=== PATIENT | male | born 1945 | race Caucasian/White ===

== ENCOUNTER 2017-03-08 18:56 | Inpatient (IN) | payer MEDICARE ==
[~2017-03-08] VITALS: Ht 167.6 cm; Wt 91.7 kg
[~2017-03-08 18:56] MED LIST: COZAAR100 MG PO; CRESTOR10 MG PO; ELIQUIS 2.5 MG2.5 MG PO; ELIQUIS5 MG PO; FLOMAX 0.4 MG0.4 MG PO; HUMALOG100 UNIT/1 SC; JANUVIA50 MG PO; KLONOPIN TAB 00.5 MG PO; LASIX20 MG PO; LOPRESSOR 25 MG25 MG PO; METFORMIN HCL1000 M1 PO; MIRAPEX0.125 MG PO; MULTAQ 400 MG400 MG PO; NEURONTIN 400400 MG PO; NITROGLYCERIN6.5 MG PO; PLAVIX 75 MG TA75 MG PO; PROTONIX40 MG PO; SYMBICORT 160-1 INHA INH; TYLENOL W/CODEIN1 E1 PO; ZANTAC150 MG PO; ZONEGRAN100 MG PO; ZONISAMIDE100 MG PO; ZYLOPRIM 100 M100 MG PO; ZYLOPRIM 300 M300 MG PO; [UNRECOGNIZED DRUG - OTHER] INJ
[2017-03-08 19:55] LABS: HEMOGLOBIN 8.9 gm/dl (14.0-17.5); RED BLOOD COUNT 3.9 M/UL (4.20-5.50); WHITE BLOOD COUNT 7.1 K/UL (4.5-11.0)
[2017-03-08] MEDS ORDERED: NATURAL LAXATIV25 MG PO (22:38)
[2017-03-08] MEDS ORDERED: FLOMAX 0.4 MG0.4 MG PO (22:38)
[2017-03-08] MEDS ORDERED: NORVASC 5 MG TAB5 MG PO (22:38)
[2017-03-08] MEDS ORDERED: TOUJEO SQ (22:40)
[2017-03-08] MEDS ORDERED: TYLENOL W/CODEIN1 E1 PO (22:41)
[2017-03-08] MEDS ORDERED: TYLENOL 325MG325 MG PO (22:41)
[2017-03-10 06:18] LABS: HEMOGLOBIN 8.3 gm/dl (14.0-17.5); RED BLOOD COUNT 3.64 M/UL (4.20-5.50); WHITE BLOOD COUNT 6.3 K/UL (4.5-11.0)
[2017-03-11 05:33] LABS: RED BLOOD COUNT 3.51 M/UL (4.20-5.50)
== END 2017-03-11 13:49 | disposition home or self-care (01) | DRG 682 ==
LOC: ER1 18:56 → ZEROF 21:41 → MED SURG 4 21:41
PROVIDERS: Emergency Medicine; Family Medicine; ADMIT Family Medicine
DX: N17.9 Acute kidney failure, unspecified (principal); I50.23 Acute on chronic systolic (congestive) heart failure; I13.0 Hypertensive heart and chronic kidney disease with heart failure and stage 1 through stage 4 chronic kidney disease, or unspecified chronic kidney disease; Q61.01 Congenital single renal cyst; K92.1 Melena; E11.22 Type 2 diabetes mellitus with diabetic chronic kidney disease; E11.21 Type 2 diabetes mellitus with diabetic nephropathy; E11.65 Type 2 diabetes mellitus with hyperglycemia; N18.3 Chronic kidney disease, stage 3 (moderate); I25.10 Atherosclerotic heart disease of native coronary artery without angina pectoris; E11.40 Type 2 diabetes mellitus with diabetic neuropathy, unspecified; I48.0 Paroxysmal atrial fibrillation; I70.203 Unspecified atherosclerosis of native arteries of extremities, bilateral legs; E78.5 Hyperlipidemia, unspecified; J44.9 Chronic obstructive pulmonary disease, unspecified; I35.0 Nonrheumatic aortic (valve) stenosis; D63.1 Anemia in chronic kidney disease; D50.9 Iron deficiency anemia, unspecified; R07.9 Chest pain, unspecified; R74.8 Abnormal levels of other serum enzymes; I65.21 Occlusion and stenosis of right carotid artery; M10.9 Gout, unspecified; E66.9 Obesity, unspecified; Z72.0 Tobacco use; F41.9 Anxiety disorder, unspecified; Z72.3 Lack of physical exercise; Z95.1 Presence of aortocoronary bypass graft; Z95.820 Peripheral vascular angioplasty status with implants and grafts; Z68.32 Body mass index [BMI] 32.0-32.9, adult; Z79.01 Long term (current) use of anticoagulants; Z79.84 Long term (current) use of oral hypoglycemic drugs; Z79.1 Long term (current) use of non-steroidal anti-inflammatories (NSAID); Z79.4 Long term (current) use of insulin; Z79.51 Long term (current) use of inhaled steroids; Z79.891 Long term (current) use of opiate analgesic; Z79.899 Other long term (current) drug therapy; Z88.8 Allergy status to other drugs, medicaments and biological substances; Z91.041 Radiographic dye allergy status; Z90.49 Acquired absence of other specified parts of digestive tract; Z98.890 Other specified postprocedural states; Z83.3 Family history of diabetes mellitus; Z80.9 Family history of malignant neoplasm, unspecified
CPT/HCPCS: ECHO; 36415; 71010; 78452; 80048; 80053; 80061; 82550; 82553; 82570; 82728; 82962; 83540; 83550; 83874; 83880; 84156; 84484; 85025; 85027; 93005; 93017; 93306; 94640; 94664; 99285; A9502; J1756; J2785; J7050

== ENCOUNTER → 2017-03-12 | Outpatient (CLI) | payer MEDICARE ==
[~2017-03-12] VITALS: Ht 167.6 cm; Wt 91.6 kg
[~2017-03-12] MED LIST changes: +NATURAL LAXATIV25 MG PO; +NORVASC 5 MG TAB5 MG PO; +TOUJEO SQ; +TYLENOL 325MG325 MG PO
== END ==
LOC: OPSV 09:48
DX: D50.9 Iron deficiency anemia, unspecified (principal)
CPT/HCPCS: 96365; J1756; J7050

== ENCOUNTER 2017-03-20 10:06 | Emergency (ER) | payer MEDICARE ==
[2017-03-20 11:08] LABS: HEMOGLOBIN 9.1 gm/dl (14.0-17.5); RED BLOOD COUNT 3.78 M/UL (4.20-5.50); WHITE BLOOD COUNT 6.7 K/UL (4.5-11.0)
== END 2017-03-20 16:01 | disposition home or self-care (01) ==
LOC: ER1 10:06
PROVIDERS: Family Medicine
DX: I50.9 Heart failure, unspecified (principal); N18.9 Chronic kidney disease, unspecified; E11.22 Type 2 diabetes mellitus with diabetic chronic kidney disease; D64.9 Anemia, unspecified; Z91.041 Radiographic dye allergy status; Z79.4 Long term (current) use of insulin; Z79.899 Other long term (current) drug therapy
CPT/HCPCS: 36415; 70450; 71010; 80053; 80307; 81001; 82550; 82553; 82962; 83874; 84443; 84484; 85025; 93005; 96360; 96361; 99285

== ENCOUNTER → 2017-03-22 | Outpatient (CLI) | payer MEDICARE | LOC: LAB 17:01 | PROVIDERS: Internal Medicine Nephrology | DX: N18.3 Chronic kidney disease, stage 3 (moderate) (principal) | CPT/HCPCS: 36415; 80048 ==

== ENCOUNTER → 2017-03-25 | Outpatient (CLI) | payer MEDICARE | LOC: LAB 10:14 | DX: D64.9 Anemia, unspecified (principal) | CPT/HCPCS: 36415; 82728; 83540; 83550 ==

== ENCOUNTER → 2017-03-27 | Outpatient (CLI) | payer MEDICARE ==
[~2017-03-27] VITALS: Ht 167.6 cm; Wt 91.6 kg
== END ==
LOC: OPSV 14:43
DX: N18.3 Chronic kidney disease, stage 3 (moderate) (principal); D50.9 Iron deficiency anemia, unspecified; D63.1 Anemia in chronic kidney disease
CPT/HCPCS: 96365; 96366; J1756; J7050

== ENCOUNTER → 2017-04-03 | Outpatient (CLI) | payer MEDICARE ==
[~2017-04-03] VITALS: Ht 167.6 cm; Wt 93.0 kg
== END ==
LOC: OPSV 09:51
DX: I13.0 Hypertensive heart and chronic kidney disease with heart failure and stage 1 through stage 4 chronic kidney disease, or unspecified chronic kidney disease (principal); I50.32 Chronic diastolic (congestive) heart failure; N18.3 Chronic kidney disease, stage 3 (moderate); D63.1 Anemia in chronic kidney disease; J30.89 Other allergic rhinitis
CPT/HCPCS: 82270; 96365; 96366; J1756; J7050

== ENCOUNTER → 2017-04-10 | Outpatient (CLI) | payer MEDICARE ==
[~2017-04-10] VITALS: Ht 167.6 cm; Wt 91.6 kg
== END ==
LOC: OPSV 09:46
DX: I13.0 Hypertensive heart and chronic kidney disease with heart failure and stage 1 through stage 4 chronic kidney disease, or unspecified chronic kidney disease (principal); N18.3 Chronic kidney disease, stage 3 (moderate); I50.32 Chronic diastolic (congestive) heart failure; D50.9 Iron deficiency anemia, unspecified; J30.89 Other allergic rhinitis
CPT/HCPCS: 96365; 96366; J1756; J7050

== ENCOUNTER → 2017-04-12 | Outpatient (CLI) | payer MEDICARE ==
[2017-04-12 11:15] LABS: HEMOGLOBIN 11.3 gm/dl (14.0-17.5); RED BLOOD COUNT 4.35 M/UL (4.20-5.50); WHITE BLOOD COUNT 7.2 K/UL (4.5-11.0)
== END ==
LOC: LAB 09:52
PROVIDERS: Internal Medicine Nephrology
DX: I13.0 Hypertensive heart and chronic kidney disease with heart failure and stage 1 through stage 4 chronic kidney disease, or unspecified chronic kidney disease (principal); I50.32 Chronic diastolic (congestive) heart failure; N18.3 Chronic kidney disease, stage 3 (moderate); D50.9 Iron deficiency anemia, unspecified; J30.89 Other allergic rhinitis
CPT/HCPCS: 36415; 80048; 85027

== ENCOUNTER → 2020-11-16 | Outpatient (CLI) | payer MEDICARE, BC, OTHER ==
[~2020-11-16] MED LIST changes: +AMIODARONE HCL200 MG PO; +ATORVASTATIN CA20 MG PO; +AUGMENTIN 875-1 EACH PO; +BENADRYL 25MG C25 MG PO; +BREO ELLIPTA 21 EACH INH; +BRILINTA90 MG PO; +BUMETANIDE1 MG PO; +CEFUROXIME500 MG PO; +COZAAR25 MG PO; +CRESTOR20 MG PO; +CRESTOR40 MG PO; +ECOTRIN81 MG PO; +ELIQUIS 5 MG TAB5 MG PO; +FERROUS SULFAT325 M2 PO; +FLONASE 0.05% N16 GM; +HYDRALAZINE HCL50 MG PO; +IMDUR ER TAB 6060 MG PO; +INJECTAFER750 MG/15 INJ; +ISOSORBIDE DINI30 MG PO; +ISOSORBIDE MONO30 MG PO; +JANUVIA100 MG PO; -KLONOPIN TAB 00.5 MG PO; +KLONOPIN1 MG PO; +LEVAQUIN500 MG PO; +LOPRESSOR100 MG PO; +METOLAZONE10 MG PO; +METOLAZONE5 MG PO; -MIRAPEX0.125 MG PO; +MIRAPEX0.5 MG PO; +NITRO-TIME9 MG PO; +NORVASC10 MG PO; +NYSTATIN1 EAC2 MC; +OMEPRAZOLE10 MG PO; +OMNICEF 300 MG300 MG PO; +PREDNISONE20 MG PO; +PROAIR HFA8.5 GM INH; +PROSCAR5 MG PO; +RANEXA1000 MG PO; +RANEXA500 MG PO; +RANITIDINE HCL300 MG PO; +SENOKOT8.6 MG PO; +STOOL SOFTENER100 M1 PO; +TOUJEO MAX300 UNIT/1 SQ; -TOUJEO SQ; +ZANTAC300 MG PO; +ZAROXOLYN/DIULO5 MG PO; +ZESTRIL2.5 MG PO; +ZOLOFT50 MG PO
== END ==
LOC: WCC 10:55
DX: T81.32XA Disruption of internal operation (surgical) wound, not elsewhere classified, initial encounter (principal); E11.628 Type 2 diabetes mellitus with other skin complications; E66.01 Morbid (severe) obesity due to excess calories; I99.8 Other disorder of circulatory system; I25.118 Atherosclerotic heart disease of native coronary artery with other forms of angina pectoris; I70.293 Other atherosclerosis of native arteries of extremities, bilateral legs; I50.22 Chronic systolic (congestive) heart failure; Z79.01 Long term (current) use of anticoagulants
CPT/HCPCS: G0463

== ENCOUNTER 2021-01-18 23:56 | Inpatient (IN) | payer MEDICARE, BC, OTHER ==
[~2021-01-18] VITALS: Ht 167.6 cm; Wt 93.0 kg
[~2021-01-18 23:56] MED LIST changes: -AMIODARONE HCL200 MG PO; -BRILINTA90 MG PO; -CEFUROXIME500 MG PO; -CRESTOR40 MG PO; -ELIQUIS 5 MG TAB5 MG PO; -ISOSORBIDE DINI30 MG PO; -ISOSORBIDE MONO30 MG PO; -OMNICEF 300 MG300 MG PO; -STOOL SOFTENER100 M1 PO; -ZOLOFT50 MG PO
[2021-01-19 00:27] LABS: HEMOGLOBIN 11.6 gm/dl (14.0-17.5); RED BLOOD COUNT 3.42 M/UL (4.20-5.50); WHITE BLOOD COUNT 6.9 K/UL (4.5-11.0)
[2021-01-19 00:44] LABS: BUN/CREATININE RATIO 24 (0-10)
[2021-01-19] MEDS ORDERED: ZOLOFT50 MG PO (03:26)
[2021-01-19] MEDS ORDERED: CRESTOR40 MG PO (10:15)
[2021-01-19] MEDS ORDERED: BUMETANIDE1 MG PO (11:08)
[2021-01-19] MEDS ORDERED: ISOSORBIDE MONO30 MG PO (11:08)
[2021-01-19] MEDS ORDERED: BRILINTA90 MG PO (11:09)
[2021-01-19] MEDS ORDERED: ELIQUIS 5 MG TAB5 MG PO (17:37)
[2021-01-20] MEDS ORDERED: AMIODARONE HCL200 MG PO ×2 (15:03)
[2021-03-09] MEDS ORDERED: STOOL SOFTENER100 M1 PO (12:03)
[2021-03-09] MEDS ORDERED: ISOSORBIDE DINI30 MG PO (12:03)
== END 2021-01-20 18:09 | disposition home or self-care (01) | DRG 291 ==
LOC: ER1 23:56 → CDU 01-19 02:10 → PROG CARE 01-19 11:32
PROVIDERS: Internal Medicine; Physician Assistant; ADMIT Internal Medicine
DX: I13.0 Hypertensive heart and chronic kidney disease with heart failure and stage 1 through stage 4 chronic kidney disease, or unspecified chronic kidney disease (principal); I50.23 Acute on chronic systolic (congestive) heart failure; I48.20 Chronic atrial fibrillation, unspecified; I47.1 Supraventricular tachycardia; N18.4 Chronic kidney disease, stage 4 (severe); I25.10 Atherosclerotic heart disease of native coronary artery without angina pectoris; Z20.822 Contact with and (suspected) exposure to COVID-19; I34.0 Nonrheumatic mitral (valve) insufficiency; I49.5 Sick sinus syndrome; G62.9 Polyneuropathy, unspecified; E11.22 Type 2 diabetes mellitus with diabetic chronic kidney disease; I48.0 Paroxysmal atrial fibrillation; K57.90 Diverticulosis of intestine, part unspecified, without perforation or abscess without bleeding; M10.9 Gout, unspecified; E66.9 Obesity, unspecified; I25.5 Ischemic cardiomyopathy; I35.0 Nonrheumatic aortic (valve) stenosis; I73.9 Peripheral vascular disease, unspecified; J44.9 Chronic obstructive pulmonary disease, unspecified; Z95.1 Presence of aortocoronary bypass graft; Z95.0 Presence of cardiac pacemaker; Q27.33 Arteriovenous malformation of digestive system vessel; Z86.73 Personal history of transient ischemic attack (TIA), and cerebral infarction without residual deficits; Z95.5 Presence of coronary angioplasty implant and graft; Z95.820 Peripheral vascular angioplasty status with implants and grafts; Z88.5 Allergy status to narcotic agent; Z88.8 Allergy status to other drugs, medicaments and biological substances; Z91.041 Radiographic dye allergy status; Z82.3 Family history of stroke; Z83.3 Family history of diabetes mellitus; Z87.891 Personal history of nicotine dependence; Z79.01 Long term (current) use of anticoagulants; I25.2 Old myocardial infarction; Z79.4 Long term (current) use of insulin
CPT/HCPCS: 36415; 71045; 80048; 80053; 82550; 82553; 82962; 83735; 83874; 83880; 84439; 84443; 84484; 85025; 93005; 99285; U0002

== ENCOUNTER 2021-01-22 09:58 | Emergency (ER) | payer MEDICARE, BC, OTHER ==
[~2021-01-22 09:58] MED LIST changes: +AMIODARONE HCL200 MG PO; +BRILINTA90 MG PO; +CRESTOR40 MG PO; +ELIQUIS 5 MG TAB5 MG PO; +ISOSORBIDE MONO30 MG PO; +ZOLOFT50 MG PO
[2021-01-22 11:03] LABS: HEMOGLOBIN 11.8 gm/dl (14.0-17.5); RED BLOOD COUNT 3.5 M/UL (4.20-5.50); WHITE BLOOD COUNT 6.8 K/UL (4.5-11.0)
[2021-01-22 11:26] LABS: BUN/CREATININE RATIO 22 (0-10)
[2021-03-09] MEDS ORDERED: STOOL SOFTENER100 M1 PO (12:03)
[2021-03-09] MEDS ORDERED: ISOSORBIDE DINI30 MG PO (12:03)
== END 2021-01-22 13:03 | disposition home or self-care (01) ==
LOC: ER1 09:58
PROVIDERS: Family Medicine
DX: R00.1 Bradycardia, unspecified (principal); Z95.0 Presence of cardiac pacemaker; J45.909 Unspecified asthma, uncomplicated; I10 Essential (primary) hypertension; E11.9 Type 2 diabetes mellitus without complications; Z79.4 Long term (current) use of insulin
CPT/HCPCS: 80053; 82550; 82553; 83874; 84484; 85025; 93005; 99283

== ENCOUNTER 2021-01-25 13:34 | Emergency (ER) | payer MEDICARE, BC, OTHER ==
[2021-01-25 14:35] LABS: HEMOGLOBIN 10.5 gm/dl (14.0-17.5); RED BLOOD COUNT 3.11 M/UL (4.20-5.50); WHITE BLOOD COUNT 12.5 K/UL (4.5-11.0)
[2021-01-25] MEDS ORDERED: CEFUROXIME500 MG PO (15:59)
[2021-03-09] MEDS ORDERED: ISOSORBIDE DINI30 MG PO (12:03)
[2021-03-09] MEDS ORDERED: STOOL SOFTENER100 M1 PO (12:03)
== END 2021-01-25 16:15 | disposition home or self-care (01) ==
LOC: ER1 13:34
PROVIDERS: Physician Assistant
DX: N39.0 Urinary tract infection, site not specified (principal); R31.9 Hematuria, unspecified; I13.10 Hypertensive heart and chronic kidney disease without heart failure, with stage 1 through stage 4 chronic kidney disease, or unspecified chronic kidney disease; E11.22 Type 2 diabetes mellitus with diabetic chronic kidney disease; N18.9 Chronic kidney disease, unspecified; I25.2 Old myocardial infarction; Z79.899 Other long term (current) drug therapy; Z79.82 Long term (current) use of aspirin
CPT/HCPCS: 80053; 81001; 85025; 87077; 87086; 87186; 99284; J2185

== ENCOUNTER 2021-02-08 17:52 | Emergency (ER) | payer MEDICARE, BC, OTHER ==
[~2021-02-08 17:52] MED LIST changes: +CEFUROXIME500 MG PO
[2021-02-08 18:28] LABS: HEMOGLOBIN 10.7 gm/dl (14.0-17.5); RED BLOOD COUNT 3.19 M/UL (4.20-5.50); WHITE BLOOD COUNT 8.1 K/UL (4.5-11.0)
[2021-02-08 18:43] LABS: BUN/CREATININE RATIO 27 (0-10)
[2021-02-08] MEDS ORDERED: OMNICEF 300 MG300 MG PO (20:50)
[2021-03-09] MEDS ORDERED: STOOL SOFTENER100 M1 PO (12:03)
[2021-03-09] MEDS ORDERED: ISOSORBIDE DINI30 MG PO (12:03)
== END 2021-02-08 21:28 | disposition home or self-care (01) ==
LOC: ER1 17:52
PROVIDERS: Physician Assistant
DX: R53.1 Weakness (principal); I13.0 Hypertensive heart and chronic kidney disease with heart failure and stage 1 through stage 4 chronic kidney disease, or unspecified chronic kidney disease; N18.9 Chronic kidney disease, unspecified; E11.22 Type 2 diabetes mellitus with diabetic chronic kidney disease; E11.51 Type 2 diabetes mellitus with diabetic peripheral angiopathy without gangrene; Z20.822 Contact with and (suspected) exposure to COVID-19; I50.20 Unspecified systolic (congestive) heart failure; I25.2 Old myocardial infarction; I48.0 Paroxysmal atrial fibrillation; E78.5 Hyperlipidemia, unspecified; Z86.79 Personal history of other diseases of the circulatory system; Z87.440 Personal history of urinary (tract) infections; Z95.1 Presence of aortocoronary bypass graft; Z79.01 Long term (current) use of anticoagulants; Z79.899 Other long term (current) drug therapy; Z88.8 Allergy status to other drugs, medicaments and biological substances; Z88.5 Allergy status to narcotic agent; Z86.73 Personal history of transient ischemic attack (TIA), and cerebral infarction without residual deficits
CPT/HCPCS: 0240U; 70450; 71045; 80053; 81001; 82550; 82553; 83874; 84484; 85025; 87040; 87086; 93005; 99285

== ENCOUNTER → 2021-03-09 | Day surgery (SDC) | payer MEDICARE, BC, OTHER ==
[~2021-03-09] MED LIST changes: +ISOSORBIDE DINI30 MG PO; +OMNICEF 300 MG300 MG PO; +STOOL SOFTENER100 M1 PO
== END | disposition home or self-care (01) ==
LOC: OR 10:45
DX: N32.89 Other specified disorders of bladder (principal); N40.1 Benign prostatic hyperplasia with lower urinary tract symptoms; R39.14 Feeling of incomplete bladder emptying; R39.16 Straining to void; R39.12 Poor urinary stream; N41.9 Inflammatory disease of prostate, unspecified; I13.0 Hypertensive heart and chronic kidney disease with heart failure and stage 1 through stage 4 chronic kidney disease, or unspecified chronic kidney disease; E11.22 Type 2 diabetes mellitus with diabetic chronic kidney disease; N18.9 Chronic kidney disease, unspecified; I50.32 Chronic diastolic (congestive) heart failure; E11.51 Type 2 diabetes mellitus with diabetic peripheral angiopathy without gangrene; I25.119 Atherosclerotic heart disease of native coronary artery with unspecified angina pectoris; J44.9 Chronic obstructive pulmonary disease, unspecified; F41.9 Anxiety disorder, unspecified; M19.90 Unspecified osteoarthritis, unspecified site; K21.9 Gastro-esophageal reflux disease without esophagitis; E78.2 Mixed hyperlipidemia; M10.9 Gout, unspecified; I25.2 Old myocardial infarction; G47.33 Obstructive sleep apnea (adult) (pediatric); G25.81 Restless legs syndrome; M06.9 Rheumatoid arthritis, unspecified; Z87.891 Personal history of nicotine dependence; Z95.1 Presence of aortocoronary bypass graft; Z95.810 Presence of automatic (implantable) cardiac defibrillator; Z91.041 Radiographic dye allergy status; Z88.5 Allergy status to narcotic agent; Z88.8 Allergy status to other drugs, medicaments and biological substances; Z79.01 Long term (current) use of anticoagulants; Z79.4 Long term (current) use of insulin; Z79.899 Other long term (current) drug therapy
CPT/HCPCS: 82962; J7040

== ENCOUNTER → 2021-04-12 | Outpatient (CLI) | payer MEDICARE, BC | END | disposition home or self-care (01) | LOC: KOH-I 04-11 10:30 | DX: I63.9 Cerebral infarction, unspecified (principal); G31.9 Degenerative disease of nervous system, unspecified | CPT/HCPCS: 70450 ==

== ENCOUNTER 2021-06-23 13:00 | Inpatient (IN) | payer MEDICARE, BC ==
[~2021-06-23] VITALS: Ht 167.6 cm; Wt 54.4 kg
[2021-06-23 15:04] LABS: HEMOGLOBIN 9.9 gm/dl (14.0-17.5); RED BLOOD COUNT 2.76 M/UL (4.20-5.50); WHITE BLOOD COUNT 5.6 K/UL (4.5-11.0)
[2021-06-24 09:48] LABS: RED BLOOD COUNT 2.86 M/UL (4.20-5.50)
[2021-06-24 09:51] LABS: WHITE BLOOD COUNT 7.4 K/UL (4.5-11.0)
[2021-06-24 10:09] LABS: BUN/CREATININE RATIO 20 (0-10)
[2021-07-17] MEDS ORDERED: OMNICEF 300 MG300 MG PO (19:02)
[2021-07-17] MEDS ORDERED: FLOMAX 0.4 MG0.4 MG PO (19:03)
== END 2021-06-24 16:15 | disposition home or self-care (01) | DRG 177 ==
LOC: ER1 13:00 → CDU 17:57
PROVIDERS: Physician Assistant Medical; Preventive Medicine Occupational Medicine; ADMIT Internal Medicine
PROC: 3E0333Z Introduction of Anti-inflammatory into Peripheral Vein, Percutaneous Approach (ICD-10-PCS; principal; 2021-06-24)
DX: U07.1 COVID-19 (principal); J12.82 Pneumonia due to coronavirus disease 2019; N18.4 Chronic kidney disease, stage 4 (severe); I13.0 Hypertensive heart and chronic kidney disease with heart failure and stage 1 through stage 4 chronic kidney disease, or unspecified chronic kidney disease; I50.32 Chronic diastolic (congestive) heart failure; N17.9 Acute kidney failure, unspecified; I25.10 Atherosclerotic heart disease of native coronary artery without angina pectoris; M10.9 Gout, unspecified; J44.9 Chronic obstructive pulmonary disease, unspecified; I35.0 Nonrheumatic aortic (valve) stenosis; E11.22 Type 2 diabetes mellitus with diabetic chronic kidney disease; M51.36 Other intervertebral disc degeneration, lumbar region; M19.90 Unspecified osteoarthritis, unspecified site; R80.9 Proteinuria, unspecified; E66.9 Obesity, unspecified; I48.91 Unspecified atrial fibrillation; E11.51 Type 2 diabetes mellitus with diabetic peripheral angiopathy without gangrene; Z88.2 Allergy status to sulfonamides; Z88.8 Allergy status to other drugs, medicaments and biological substances; Z86.73 Personal history of transient ischemic attack (TIA), and cerebral infarction without residual deficits; Z98.890 Other specified postprocedural states; Z87.891 Personal history of nicotine dependence; Z91.041 Radiographic dye allergy status; Z90.49 Acquired absence of other specified parts of digestive tract; Z79.4 Long term (current) use of insulin; Z95.1 Presence of aortocoronary bypass graft; Z79.01 Long term (current) use of anticoagulants; Z68.33 Body mass index [BMI] 33.0-33.9, adult
CPT/HCPCS: 36415; 71045; 71250; 80048; 80053; 81001; 82550; 82553; 82962; 83036; 83540; 83550; 83735; 83880; 84100; 84484; 85025; 85027; 85652; 86140; 87040; 87086; 93970; 94664; 94760; 96372; 96374; 96375; 99285; G0378; J0456; J0696; J1100; J1650; J7030; U0002

== ENCOUNTER 2021-08-18 17:45 | Emergency (ER) | payer MEDICARE, BC ==
[2021-08-18 19:23] LABS: HEMOGLOBIN 12.1 gm/dl (14.0-17.5); RED BLOOD COUNT 3.39 M/UL (4.20-5.50); WHITE BLOOD COUNT 7.2 K/UL (4.5-11.0)
== END 2021-08-18 23:30 | disposition home or self-care (01) ==
LOC: ER1 17:45
PROVIDERS: Emergency Medicine
DX: R00.1 Bradycardia, unspecified (principal); I25.10 Atherosclerotic heart disease of native coronary artery without angina pectoris; N18.9 Chronic kidney disease, unspecified; E11.22 Type 2 diabetes mellitus with diabetic chronic kidney disease
CPT/HCPCS: 71045; 80053; 82550; 82553; 83735; 83874; 83880; 84100; 84439; 84443; 84484; 85025; 85610; 85730; 93005; 99285

== ENCOUNTER → 2021-09-04 | Outpatient (CLI) | payer MEDICARE, BC ==
[2021-09-04 12:02] LABS: HEMOGLOBIN 11.7 gm/dl (14.0-17.5); RED BLOOD COUNT 3.34 M/UL (4.20-5.50); WHITE BLOOD COUNT 8.5 K/UL (4.5-11.0)
== END ==
LOC: LAB 10:41
PROVIDERS: Internal Medicine Nephrology
DX: N18.4 Chronic kidney disease, stage 4 (severe) (principal); D50.9 Iron deficiency anemia, unspecified; N25.81 Secondary hyperparathyroidism of renal origin
CPT/HCPCS: 36415; 80053; 82043; 82570; 82728; 83540; 83550; 83970; 84156; 85027